=== PATIENT | female | born 1960 ===

== ENCOUNTER 2024-04-24 18:28 | Emergency (ER) | payer SELFPAY ==
[2024-04-24 18:40] VITALS: BP 115/61; PULSE 74; RESP 18; TEMP 36.7; O2SAT 96; BMI 26.6
--- NOTE | 2024-04-24 19:08 | PC.NURSE ---
Patient requesting to leave, signed [facility] paperwork.
== END 2024-04-24 19:05 | disposition left against medical advice (07) ==
PROVIDERS: Emergency Provider Emergency Medicine
DX: T78.40XA Allergy, unspecified, initial encounter (principal)
CPT/HCPCS: 99281